=== PATIENT | male | born 2000 | race Caucasian/White ===

== ENCOUNTER 2022-08-09 07:06 | Emergency (ER) | payer OTHER ==
[2022-08-09 07:51] LABS: BASOPHIL 0.3 % (0-2); EOSINOPHIL 0.9 % (0-5); HCT 45.2 % (42.0-52.0); HGB 15.8 g/dl (13.2-18.0); LYMPHOCYTE 23.9 % (15-48); MCH 31.4 pg (25.0-31.0); MCV 89.9 fL (78.0-100.0); MONOCYTE 5.5 % (0-12); MPV 9.9 fL (6.0-9.5); NEUTROPHIL 69.1 % (41-80); NRBC 0; PLT 288 K/uL (150-400); RBC 5.03 M/uL (4.70-6.00); RDW 12.5 % (11.5-14.0); WBC 6.8 K/uL (4.0-10.5)
[2022-08-09 08:11] LABS: ALBUMIN 4.2 g/dL (3.4-5.0); BILIRUBIN - TOTAL 1.2 mg/dL (0.2-1.0); BUN/CREAT RATIO (CALC) 10.1 RATIO; CREATININE 0.79 mg/dL (0.67-1.17); GLOBULIN (CALCULATION) 2.7 g/dL; POTASSIUM 3.9 mmol/L (3.5-5.1); TOTAL PROTEIN 6.9 g/dL (6.4-8.2)
[2022-08-09] MEDS ORDERED: NORCO 5-325 TA1 EACH PO (09:24)
== END 2022-08-09 10:00 | disposition home or self-care (01) ==
LOC: FER 07:06
PROVIDERS: Internal Medicine
DX: S02.2XXA Fracture of nasal bones, initial encounter for closed fracture (principal); S92.321A Displaced fracture of second metatarsal bone, right foot, initial encounter for closed fracture; S92.331A Displaced fracture of third metatarsal bone, right foot, initial encounter for closed fracture; S92.341A Displaced fracture of fourth metatarsal bone, right foot, initial encounter for closed fracture; S50.12XA Contusion of left forearm, initial encounter; Z28.310 Unvaccinated for COVID-19; V49.40XA Driver injured in collision with unspecified motor vehicles in traffic accident, initial encounter
CPT/HCPCS: 36415; 70450; 70486; 71260; 72125; 72128; 72131; 73090; 73630; 80053; 85025; J1170; Q9967